=== PATIENT | male | born 1950 | race African-American/Black ===

== ENCOUNTER 2017-08-29 06:08 | Inpatient (IN) | payer MEDICARE, OTHER ==
[~2017-08-29] VITALS: Ht 182.9 cm; Wt 81.2 kg
[~2017-08-29 06:08] MED LIST: ADV250 IH; ASPI-1182 PO; ATOR20TA86 PO; CARV6 PO; FURO40 PO; GABA-531 PO; IPRA4AER IH; PANT40TA25 PO; PRED10 PO
[2017-08-29 06:33] LABS: GLUCOSE,POINT OF CARE 72 MG/DL (70-110)
[2017-08-29 07:06] LABS: BASOPHILS % (AUTO) 0.7 % (0.0-2.0); EOSINOPHILS % (AUTO) 0.6 % (1.0-6.0); HEMATOCRIT 40.5 % (41-53); HEMOGLOBIN 13.1 g/dL (13.5-17.5); LYMPHOCYTES # (AUTO) 1.7 K/uL (1.0-4.8); LYMPHOCYTES % (AUTO) 19.7 % (22.0-44.0); MEAN CORPUSCULAR HEMOGLOBIN 24.6 pg (26.0-34.0); MEAN CORPUSCULAR HGB CONC 32.3 G/dL (31.0-37.0); MEAN CORPUSCULAR VOLUME 76 fL (80-100); MONOCYTES # (AUTO) 0.7 K/uL (0.1-1.0); MONOCYTES % (AUTO) 8.3 % (2.0-9.0); NEUTROPHILS # (AUTO) 6.2 K/uL (1.8-7.7); NEUTROPHILS % (AUTO) 70.7 % (40.0-70.0); PLATELET COUNT (AUTO) 160 K/uL (150-450); RED BLOOD CELL COUNT(AUTO) 5.33 MIL/uL (4.50-5.90); RED CELL DISTRIBUTION WIDTH 21.4 % (11.5-14.5)
[2017-08-29 07:29] LABS: ALBUMIN 3.3 g/dL (3.4-5.0); BILIRUBIN,TOTAL 2.3 mg/dL (0.1-1.0); CALCIUM, TOTAL 9.3 mg/dL (8.8-10.5); CREATININE 2.31 mg/dL (0.60-1.30); TOTAL PROTEIN, SERUM 7.9 g/dL (6.4-8.2)
[2017-08-29] MEDS ORDERED: PB/HYOSCY/ATR/SCOP/LIDO/MAALOX 55 ML BOTTLE PO ONE (07:30)
[2017-08-29 07:39] LABS: POTASSIUM 6.1 mmol/L (3.5-5.1)
[2017-08-29] MEDS ORDERED: SODIUM POLYSTYRENE SULFONATE 15 GM/60 ML SUSPENSION BOTTLE PO ONE (09:30)
[2017-08-29] MEDS ORDERED: FUROSEMIDE 40 MG/4 ML VIAL IVP ONE (09:30)
[2017-08-29] MEDS ORDERED: DEXTROSE 50%-WATER 25 GM/50 ML SYRINGE IVP ONE (09:30)
[2017-08-29] MEDS ORDERED: SODIUM BICARBONATE [ADULT] 8.4% 50 MEQ/50 ML SYRINGE IVP ONE (09:30)
[2017-08-29] MEDS ORDERED: INSULIN REGULAR, HUMAN 100 UNITS/ML IVP ONE (09:30)
[2017-08-29] MEDS ORDERED: ALBUTEROL SULFATE 2.5 MG/0.5 ML NEB SOLUTION NEB ONE (09:30)
[2017-08-29 10:10] LABS: AMPHET/METH SCREEN,URINE NEGATIVE (NEGATIVE); BARBITURATE SCREEN, URINE NEGATIVE (NEGATIVE); BENZODIAZEPINES SCREEN,URINE NEGATIVE (NEGATIVE); CANNABINOID SCREEN,URINE NEGATIVE (NEGATIVE); COCAINE SCREEN,URINE POSITIVE (NEGATIVE); METHADONE SCREEN, URINE NEGATIVE (NEGATIVE); OPIATE SCREEN,URINE NEGATIVE (NEGATIVE)
[2017-08-29 10:11] LABS: PHENCYCLIDINE SCREEN,URINE NEGATIVE (NEGATIVE)
[2017-08-29 10:12] LABS: APPEARANCE,URINE CLOUDY (CLEAR); GLUCOSE, URINE (UA) NEGATIVE (NEGATIVE); KETONES,URINE TRACE mg/dL (NEGATIVE); LEUKOCYTE ESTERASE ,URINE NEGATIVE (NEGATIVE); NITRATE,URINE NEGATIVE (NEGATIVE); OCCULT BLOOD,URINE SMALL (NEGATIVE); PROTEIN,URINE SEE CONFIRM (NEGATIVE)
[2017-08-29 10:13] LABS: BILIRUBIN,URINE PRELIM. POSITIVE (NEGATIVE)
[2017-08-29 10:21] LABS: SULFOSALICYLIC ACID,URINE 2+ (Negative)
[2017-08-29 10:23] LABS: GLUCOSE,POINT OF CARE 134 MG/DL (70-110)
[2017-08-29 10:24] LABS: BACTERIA,URINE None Seen /HPF (None Seen); RENAL EPITHELIAL CELLS,URINE Few /LPF (None Seen); SQUAMOUS EPITHELIAL CELL,UR Few /LPF (None Seen); WBC,URINE 0-2 /HPF (0-5)
[2017-08-29 10:25] LABS: COARSE GRANULAR CASTS,URINE 0-2 /LPF (None Seen)
[2017-08-29] MEDS ORDERED: NITROGLYCERIN 2% (1 GM=INCH) PACKET TP ONE (11:30)
[2017-08-29] MEDS ORDERED: HYDROCODONE/ACETAMINOPHEN 5-325 MG TABLET PO PRN (12:15)
[2017-08-29] MEDS ORDERED: ZOLPIDEM TARTRATE 10 MG TABLET PO PRN (12:15)
[2017-08-29] MEDS ORDERED: MAGNESIUM HYDROXIDE SUSPENSION 30 ML UDCUP PO PRN (12:15)
[2017-08-29] MEDS ORDERED: MORPHINE SULFATE 4 MG/ML SYRINGE IVP PRN (12:15)
[2017-08-29] MEDS ORDERED: IPRATROPIUM BROMIDE 0.5 MG/2.5 ML NEB SOLUTION NEB PRN (12:15)
[2017-08-29] MEDS ORDERED: ACETAMINOPHEN 325 MG TABLET PO PRN (12:15)
[2017-08-29] MEDS ORDERED: ONDANSETRON HCL 4 MG/2 ML VIAL IVP PRN (12:15)
[2017-08-29 12:24] VITALS: BP 145/116
[2017-08-29] MEDS ORDERED: HydrALAZINE HCL 20 MG/ML VIAL IVP PRN (12:30)
[2017-08-29 16:20] VITALS: BP 157/113
[2017-08-29] MEDS: GABAPENTIN 300 MG CAPSULE PO SCH ×2 (16:40→21:05)
[2017-08-29 17:00] LABS: CREATININE,URINE RANDOM 10.9 mg/dL (30.0-125.0)
[2017-08-29] MEDS: NITROGLYCERIN 2% (1 GM=INCH) PACKET TP SCH (17:43)
[2017-08-29 18:44] LABS: CALCIUM, TOTAL 9.2 mg/dL (8.8-10.5); CREATININE 2.37 mg/dL (0.60-1.30); POTASSIUM 4.7 mmol/L (3.5-5.1)
[2017-08-29 19:25] VITALS: BP 148/104
[2017-08-29] MEDS: ATORVASTATIN CALCIUM 20 MG TABLET PO SCH (21:05)
[2017-08-29] MEDS: CARVEDILOL 6.25 MG TABLET PO SCH (21:05)
[2017-08-29] MEDS: FLUTICASONE/SALMETEROL 250 MCG-50 MCG/INH DISKUS INHALER [28] IH SCH (21:05)
[2017-08-29] MEDS: FUROSEMIDE 40 MG TABLET PO SCH (21:05)
[2017-08-29] MEDS: DOCUSATE SODIUM 100 MG CAPSULE PO SCH (21:05)
[2017-08-29 23:39] VITALS: BP 149/107
[2017-08-30] MEDS: NITROGLYCERIN 2% (1 GM=INCH) PACKET TP SCH ×2 (00:06→05:32)
[2017-08-30 03:32] VITALS: BP 142/109
[2017-08-30 06:24] LABS: CHOL/HDL RATIO 3.2 (4.2-7.3)
[2017-08-30 07:09] VITALS: BP 131/103
[2017-08-30] MEDS: PANTOPRAZOLE SODIUM 40 MG/VIAL IVP SCH (09:00)
[2017-08-30] MEDS: GABAPENTIN 300 MG CAPSULE PO SCH ×3 (09:51→20:03)
[2017-08-30] MEDS: PredniSONE 10 MG TABLET PO SCH (09:51)
[2017-08-30] MEDS: PANTOPRAZOLE SODIUM 40 MG DR TABLET PO SCH (09:51)
[2017-08-30] MEDS: FUROSEMIDE 40 MG TABLET PO SCH ×2 (09:51→20:03)
[2017-08-30] MEDS: CARVEDILOL 6.25 MG TABLET PO SCH ×2 (09:51→20:03)
[2017-08-30] MEDS: ASPIRIN 81 MG CHEWABLE TABLET PO SCH (09:51)
[2017-08-30] MEDS: DOCUSATE SODIUM 100 MG CAPSULE PO SCH ×2 (09:51→20:04)
[2017-08-30] MEDS: FLUTICASONE/SALMETEROL 250 MCG-50 MCG/INH DISKUS INHALER [28] IH SCH ×2 (10:35→20:04)
[2017-08-30] MEDS: AmLODIPine BESYLATE 5 MG TABLET PO SCH (10:35)
[2017-08-30 11:17] VITALS: BP 121/91
[2017-08-30 12:49] LABS: BASOPHILS % (AUTO) 0.9 % (0.0-2.0); HEMATOCRIT 37.5 % (41-53); HEMOGLOBIN 12.1 g/dL (13.5-17.5); LYMPHOCYTES # (AUTO) 1.9 K/uL (1.0-4.8); LYMPHOCYTES % (AUTO) 23.5 % (22.0-44.0); MEAN CORPUSCULAR HEMOGLOBIN 24.4 pg (26.0-34.0); MEAN CORPUSCULAR HGB CONC 32.4 G/dL (31.0-37.0); MEAN CORPUSCULAR VOLUME 75 fL (80-100); MONOCYTES # (AUTO) 0.8 K/uL (0.1-1.0); MONOCYTES % (AUTO) 9.8 % (2.0-9.0); NEUTROPHILS # (AUTO) 5.1 K/uL (1.8-7.7); NEUTROPHILS % (AUTO) 64.8 % (40.0-70.0); RED BLOOD CELL COUNT(AUTO) 4.97 MIL/uL (4.50-5.90); RED CELL DISTRIBUTION WIDTH 21.4 % (11.5-14.5)
[2017-08-30 13:01] LABS: ALBUMIN 2.9 g/dL (3.4-5.0); BILIRUBIN,TOTAL 1.5 mg/dL (0.1-1.0); CALCIUM, TOTAL 8.8 mg/dL (8.8-10.5); CREATININE 2.3 mg/dL (0.60-1.30); POTASSIUM 4.8 mmol/L (3.5-5.1); TOTAL PROTEIN, SERUM 6.7 g/dL (6.4-8.2)
[2017-08-30 13:32] LABS: PLATELET COUNT (AUTO) 120 K/uL (150-450)
[2017-08-30 15:39] VITALS: BP 124/94
[2017-08-30 19:14] LABS: CALCIUM, TOTAL 8.6 mg/dL (8.8-10.5); CREATININE 2.73 mg/dL (0.60-1.30); MAGNESIUM 1.9 mg/dL (1.80-2.40); PHOSPHORUS 3.1 mg/dL (2.5-4.9); POTASSIUM 4.8 mmol/L (3.5-5.1)
[2017-08-30 19:26] VITALS: BP 136/95
[2017-08-30] MEDS: ATORVASTATIN CALCIUM 20 MG TABLET PO SCH (20:03)
[2017-08-30 23:07] VITALS: BP 140/90
[2017-08-31 04:53] VITALS: BP 132/87
[2017-08-31 07:56] VITALS: BP 149/98
[2017-08-31] MEDS: PANTOPRAZOLE SODIUM 40 MG/VIAL IVP SCH (09:00)
[2017-08-31] MEDS: ASPIRIN 81 MG CHEWABLE TABLET PO SCH (09:42)
[2017-08-31] MEDS: FLUTICASONE/SALMETEROL 250 MCG-50 MCG/INH DISKUS INHALER [28] IH SCH ×2 (09:42→20:50)
[2017-08-31] MEDS: PredniSONE 10 MG TABLET PO SCH (09:42)
[2017-08-31] MEDS: DOCUSATE SODIUM 100 MG CAPSULE PO SCH ×2 (09:42→20:50)
[2017-08-31] MEDS: PANTOPRAZOLE SODIUM 40 MG DR TABLET PO SCH (09:42)
[2017-08-31] MEDS: CARVEDILOL 6.25 MG TABLET PO SCH ×2 (09:42→20:50)
[2017-08-31] MEDS: GABAPENTIN 300 MG CAPSULE PO SCH ×3 (09:42→20:50)
[2017-08-31] MEDS: AmLODIPine BESYLATE 5 MG TABLET PO SCH (10:55)
[2017-08-31] MEDS: FUROSEMIDE 40 MG TABLET PO SCH (10:55)
[2017-08-31 11:16] VITALS: BP 117/83
[2017-08-31] MEDS ORDERED: BARIUM SULFATE 0.1% SUSPENSION 450 ML BOTTLE ONE (13:06)
[2017-08-31 15:25] VITALS: BP 99/74
[2017-08-31 19:34] VITALS: BP 110/72
[2017-08-31] MEDS: ATORVASTATIN CALCIUM 20 MG TABLET PO SCH (20:50)
[2017-08-31 23:30] VITALS: BP 132/70
[2017-09-01 03:29] VITALS: BP 112/72
[2017-09-01 07:34] VITALS: BP 149/78
[2017-09-01] MEDS: PANTOPRAZOLE SODIUM 40 MG/VIAL IVP SCH (09:00)
[2017-09-01] MEDS ORDERED: FUROSEMIDE 40 MG TABLET PO SCH (09:00)
[2017-09-01] MEDS: DOCUSATE SODIUM 100 MG CAPSULE PO SCH ×2 (09:10→20:22)
[2017-09-01] MEDS: AmLODIPine BESYLATE 5 MG TABLET PO SCH (09:10)
[2017-09-01] MEDS: CARVEDILOL 6.25 MG TABLET PO SCH ×2 (09:10→20:22)
[2017-09-01] MEDS: GABAPENTIN 300 MG CAPSULE PO SCH ×3 (09:10→20:22)
[2017-09-01] MEDS: PredniSONE 10 MG TABLET PO SCH (09:10)
[2017-09-01] MEDS: PANTOPRAZOLE SODIUM 40 MG DR TABLET PO SCH (09:11)
[2017-09-01] MEDS: FLUTICASONE/SALMETEROL 250 MCG-50 MCG/INH DISKUS INHALER [28] IH SCH ×2 (09:11→20:21)
[2017-09-01] MEDS: FUROSEMIDE 40 MG TABLET PO SCH (09:11)
[2017-09-01] MEDS: ASPIRIN 81 MG CHEWABLE TABLET PO SCH (09:11)
[2017-09-01 11:47] VITALS: BP 136/87
[2017-09-01 11:55] LABS: CALCIUM, TOTAL 8.2 mg/dL (8.8-10.5); CREATININE 2.07 mg/dL (0.60-1.30); POTASSIUM 3.7 mmol/L (3.5-5.1)
[2017-09-01 11:59] LABS: MAGNESIUM 1.9 mg/dL (1.80-2.40)
[2017-09-01] MEDS ORDERED: POTASSIUM PHOS,M-BASIC-D-BASIC 30 MEQ in DEXTROSE 5%-WATER 150 ML IV ONE (13:30)
[2017-09-01] MEDS ORDERED: SODIUM CHLORIDE 0.9% 100 ML ONE (15:19)
[2017-09-01 16:00] VITALS: BP 137/70
[2017-09-01 20:04] VITALS: BP 136/93
[2017-09-01] MEDS: ATORVASTATIN CALCIUM 20 MG TABLET PO SCH (20:22)
[2017-09-02 00:43] VITALS: BP 140/95
[2017-09-02 04:30] VITALS: BP 129/95
[2017-09-02 06:28] LABS: BASOPHILS % (AUTO) 0.5 % (0.0-2.0); HEMATOCRIT 37.6 % (41-53); HEMOGLOBIN 12.3 g/dL (13.5-17.5); LYMPHOCYTES % (AUTO) 10.4 % (22.0-44.0); MEAN CORPUSCULAR HEMOGLOBIN 24.5 pg (26.0-34.0); MEAN CORPUSCULAR HGB CONC 32.8 G/dL (31.0-37.0); MEAN CORPUSCULAR VOLUME 75 fL (80-100); NEUTROPHILS # (AUTO) 7.7 K/uL (1.8-7.7); NEUTROPHILS % (AUTO) 78.1 % (40.0-70.0); PLATELET COUNT (AUTO) 160 K/uL (150-450); RED BLOOD CELL COUNT(AUTO) 5.03 MIL/uL (4.50-5.90); RED CELL DISTRIBUTION WIDTH 21.2 % (11.5-14.5)
[2017-09-02 07:11] LABS: CALCIUM, TOTAL 8.1 mg/dL (8.8-10.5); CREATININE 1.99 mg/dL (0.60-1.30); MAGNESIUM 1.9 mg/dL (1.80-2.40); PHOSPHORUS 1.9 mg/dL (2.5-4.9); POTASSIUM 4.2 mmol/L (3.5-5.1)
[2017-09-02 07:31] VITALS: BP 155/97
[2017-09-02 08:36] LABS: ERYTHROCYTE SEDIMENTATION RATE 4 MM/HR (0-15)
[2017-09-02] MEDS: PANTOPRAZOLE SODIUM 40 MG/VIAL IVP SCH (09:00)
[2017-09-02] MEDS: FUROSEMIDE 40 MG TABLET PO SCH (09:02)
[2017-09-02] MEDS: PANTOPRAZOLE SODIUM 40 MG DR TABLET PO SCH (09:02)
[2017-09-02] MEDS: CARVEDILOL 6.25 MG TABLET PO SCH ×2 (09:03→20:17)
[2017-09-02] MEDS: ASPIRIN 81 MG CHEWABLE TABLET PO SCH (09:03)
[2017-09-02] MEDS: PredniSONE 10 MG TABLET PO SCH (09:03)
[2017-09-02] MEDS: GABAPENTIN 300 MG CAPSULE PO SCH ×3 (09:03→20:17)
[2017-09-02] MEDS: AmLODIPine BESYLATE 5 MG TABLET PO SCH (09:03)
[2017-09-02] MEDS: FLUTICASONE/SALMETEROL 250 MCG-50 MCG/INH DISKUS INHALER [28] IH SCH ×2 (09:04→20:17)
[2017-09-02] MEDS: DOCUSATE SODIUM 100 MG CAPSULE PO SCH ×2 (09:04→20:17)
[2017-09-02] MEDS ORDERED: SODIUM PHOS,M-BASIC-D-BASIC 30 MEQ in DEXTROSE 5%-WATER 150 ML IV ONE (09:15)
[2017-09-02 11:39] VITALS: BP 136/95
[2017-09-02 16:38] VITALS: BP 126/96
[2017-09-02 19:25] VITALS: BP 130/91
[2017-09-02] MEDS: ATORVASTATIN CALCIUM 20 MG TABLET PO SCH (20:17)
[2017-09-03] VITALS (15 sets, daily range): BP systolic 97–144; BP diastolic 74–105
[2017-09-03 07:40] LABS: BASOPHILS % (AUTO) 0.6 % (0.0-2.0); EOSINOPHILS % (AUTO) 1.3 % (1.0-6.0); HEMATOCRIT 37.2 % (41-53); HEMOGLOBIN 12.3 g/dL (13.5-17.5); LYMPHOCYTES # (AUTO) 1.2 K/uL (1.0-4.8); LYMPHOCYTES % (AUTO) 13.8 % (22.0-44.0); MEAN CORPUSCULAR HEMOGLOBIN 24.6 pg (26.0-34.0); MEAN CORPUSCULAR VOLUME 75 fL (80-100); MONOCYTES # (AUTO) 0.9 K/uL (0.1-1.0); MONOCYTES % (AUTO) 10.2 % (2.0-9.0); NEUTROPHILS # (AUTO) 6.4 K/uL (1.8-7.7); NEUTROPHILS % (AUTO) 74.1 % (40.0-70.0); PLATELET COUNT (AUTO) 160 K/uL (150-450); RED BLOOD CELL COUNT(AUTO) 4.98 MIL/uL (4.50-5.90); RED CELL DISTRIBUTION WIDTH 21.2 % (11.5-14.5)
[2017-09-03 07:52] LABS: INR 1.1 (0.9-1.1); PROTHROMBIN TIME 11.4 SEC (9.4-11.6)
[2017-09-03 08:05] LABS: CALCIUM, TOTAL 8.7 mg/dL (8.8-10.5); CREATININE 1.8 mg/dL (0.60-1.30); MAGNESIUM 2.1 mg/dL (1.80-2.40); PHOSPHORUS 2.9 mg/dL (2.5-4.9); POTASSIUM 4.1 mmol/L (3.5-5.1)
[2017-09-03] MEDS: PANTOPRAZOLE SODIUM 40 MG DR TABLET PO SCH (09:04)
[2017-09-03] MEDS: FLUTICASONE/SALMETEROL 250 MCG-50 MCG/INH DISKUS INHALER [28] IH SCH ×2 (09:04→20:23)
[2017-09-03] MEDS: GABAPENTIN 300 MG CAPSULE PO SCH ×3 (09:04→20:23)
[2017-09-03] MEDS: CARVEDILOL 6.25 MG TABLET PO SCH ×2 (09:04→20:23)
[2017-09-03] MEDS: PredniSONE 10 MG TABLET PO SCH (09:04)
[2017-09-03] MEDS: AmLODIPine BESYLATE 5 MG TABLET PO SCH (09:05)
[2017-09-03] MEDS: DOCUSATE SODIUM 100 MG CAPSULE PO SCH ×2 (09:05→20:23)
[2017-09-03] MEDS: ASPIRIN 81 MG CHEWABLE TABLET PO SCH (09:05)
[2017-09-03] MEDS: FUROSEMIDE 40 MG TABLET PO SCH (09:05)
[2017-09-03] MEDS ORDERED: GLYCOPYRROLATE 0.2 MG/ML VIAL IM ONE (12:00)
[2017-09-03] MEDS ORDERED: MIDAZOLAM HCL 2 MG/2 ML VIAL IVP ONE (12:00)
[2017-09-03] MEDS ORDERED: ALBUTEROL SULFATE HFA 90 MCG/PUFF 8 GM INHALER IH ONE (12:00)
[2017-09-03] MEDS ORDERED: LIDOCAINE HCL/PF 2% 5 ML SYRINGE IVP ONE (12:00)
[2017-09-03] MEDS ORDERED: DEXAMETHASONE SOD PHOS 4 MG/ML VIAL IVP ONE (12:00)
[2017-09-03] MEDS ORDERED: PROPOFOL 1% 20 ML VIAL IVP ONE (12:00)
[2017-09-03] MEDS ORDERED: METOCLOPRAMIDE HCL 5 MG/ML 2 ML VIAL IVP ONE (12:00)
[2017-09-03] MEDS ORDERED: FentaNYL CITRATE-PF 100 MCG/2 ML VIAL IVP ONE (12:00)
[2017-09-03] MEDS ORDERED: SODIUM BICARBONATE 50 MEQ/50 ML VIAL ONE (12:31)
[2017-09-03] MEDS ORDERED: IOHEXOL 300 MG/ML 50 ML VIAL ONE ×2 (12:31→13:47)
[2017-09-03] MEDS ORDERED: LIDOCAINE HCL/PF 1% 30 ML VIAL ONE ×2 (12:31→13:52)
[2017-09-03] MEDS ORDERED: VASOPRESSIN 20 UNITS/ML VIAL ONE (12:55)
[2017-09-03] MEDS ORDERED: BUPIVACAINE LIPOSOME/PF 1.3%-13.3MG/ML SUSPENSION 10 ML VIAL INJ ONE (13:00)
[2017-09-03] MEDS ORDERED: LIDOCAINE 1% 30 ML/SOD BICARB 8.4% 4 ML SQ ONE (13:46)
[2017-09-03] MEDS ORDERED: CeFAZolin 1 GM/DEXTROSE 50 ML IV SCH (16:00)
[2017-09-03] MEDS ORDERED: CeFAZolin 1 GM/DEXTROSE 10 ML IV SCH (16:00)
[2017-09-03] MEDS ORDERED: POTASSIUM PHOS/SODIUM PHOS MIXTURE 1 POWDER PACKET PO ONE (19:00)
[2017-09-03] MEDS: ATORVASTATIN CALCIUM 20 MG TABLET PO SCH (20:23)
[2017-09-03] MEDS ORDERED: SODIUM CHLORIDE 0.9% 100 ML ONE (22:56)
[2017-09-03] MEDS: CeFAZolin 1 GM/DEXTROSE 50 ML IV SCH (22:57)
[2017-09-04] MEDS: CeFAZolin 1 GM/DEXTROSE 50 ML IV SCH ×2 (03:54→11:33)
[2017-09-04 05:05] VITALS: BP 122/79
[2017-09-04 07:19] VITALS: BP 130/86
[2017-09-04 07:45] LABS: CALCIUM, TOTAL 8.2 mg/dL (8.8-10.5); CREATININE 1.96 mg/dL (0.60-1.30); MAGNESIUM 2.3 mg/dL (1.80-2.40); PHOSPHORUS 3.1 mg/dL (2.5-4.9); POTASSIUM 5.5 mmol/L (3.5-5.1)
[2017-09-04] MEDS: DOCUSATE SODIUM 100 MG CAPSULE PO SCH (08:28)
[2017-09-04] MEDS: GABAPENTIN 300 MG CAPSULE PO SCH ×2 (08:28→18:44)
[2017-09-04] MEDS: PANTOPRAZOLE SODIUM 40 MG DR TABLET PO SCH (08:28)
[2017-09-04] MEDS: CARVEDILOL 6.25 MG TABLET PO SCH (08:28)
[2017-09-04] MEDS: FUROSEMIDE 40 MG TABLET PO SCH (08:29)
[2017-09-04] MEDS: ASPIRIN 81 MG CHEWABLE TABLET PO SCH (08:29)
[2017-09-04] MEDS: PredniSONE 10 MG TABLET PO SCH (08:29)
[2017-09-04] MEDS: AmLODIPine BESYLATE 5 MG TABLET PO SCH (08:30)
[2017-09-04] MEDS ORDERED: SODIUM POLYSTYRENE SULFONATE 15 GM/60 ML SUSPENSION BOTTLE PO ONE (09:45)
[2017-09-04] MEDS: FLUTICASONE/SALMETEROL 250 MCG-50 MCG/INH DISKUS INHALER [28] IH SCH (09:51)
[2017-09-04] MEDS ORDERED: CeFAZolin 1 GM/DEXTROSE 10 ML IV SCH (10:00)
[2017-09-04 11:01] VITALS: BP 139/95
[2017-09-04] MEDS ORDERED: AMLO-511 PO (12:49)
[2017-09-04 15:41] VITALS: BP 138/92
== END 2017-09-04 20:15 | disposition home or self-care (01) | DRG 226 ==
LOC: EMS 06:09 → 5N 10:52
PROVIDERS: ADMIT Hospitalist; ATTEND Hospitalist
PROC: 0JH608Z Insertion of Defibrillator Generator into Chest Subcutaneous Tissue and Fascia, Open Approach (ICD-10-PCS; principal; 2017-09-03)
PROC: 02HK3KZ Insertion of Defibrillator Lead into Right Ventricle, Percutaneous Approach (ICD-10-PCS; 2017-09-03)
PROC: 4B02XTZ Measurement of Cardiac Defibrillator, External Approach (ICD-10-PCS; 2017-09-04)
DX: I13.0 Hypertensive heart and chronic kidney disease with heart failure and stage 1 through stage 4 chronic kidney disease, or unspecified chronic kidney disease (principal); I50.23 Acute on chronic systolic (congestive) heart failure; I47.2 Ventricular tachycardia; N17.9 Acute kidney failure, unspecified; E11.22 Type 2 diabetes mellitus with diabetic chronic kidney disease; K52.9 Noninfective gastroenteritis and colitis, unspecified; K21.9 Gastro-esophageal reflux disease without esophagitis; J44.9 Chronic obstructive pulmonary disease, unspecified; N18.9 Chronic kidney disease, unspecified; E78.00 Pure hypercholesterolemia, unspecified; B19.20 Unspecified viral hepatitis C without hepatic coma; E78.5 Hyperlipidemia, unspecified; E83.39 Other disorders of phosphorus metabolism; E87.5 Hyperkalemia; I25.10 Atherosclerotic heart disease of native coronary artery without angina pectoris; I25.5 Ischemic cardiomyopathy; R16.0 Hepatomegaly, not elsewhere classified; K40.90 Unilateral inguinal hernia, without obstruction or gangrene, not specified as recurrent; K42.9 Umbilical hernia without obstruction or gangrene; K57.90 Diverticulosis of intestine, part unspecified, without perforation or abscess without bleeding; N20.0 Calculus of kidney; F10.10 Alcohol abuse, uncomplicated; F14.10 Cocaine abuse, uncomplicated; F15.10 Other stimulant abuse, uncomplicated; F17.210 Nicotine dependence, cigarettes, uncomplicated; Z79.82 Long term (current) use of aspirin; Z79.899 Other long term (current) drug therapy; Z95.1 Presence of aortocoronary bypass graft; Z95.2 Presence of prosthetic heart valve
CPT/HCPCS: 33249; 71046; 74022; 74176; 76000; 76700; 82570; 83735; 84100; 84156; 84300; 84540; 85651; 93005; 93306; 94640; 96374; 96375; 99291; C9113; J0360; J0690; J1100; J1815; J1940; J2250; J2704; J2765; J3010; J3490; J3535; J7050; J7060; Q9967

== ENCOUNTER → 2017-09-11 | Outpatient (CLI) | payer MEDICARE, OTHER ==
[~2017-09-11] VITALS: Ht 180.3 cm; Wt 82.0 kg
[~2017-09-11] MED LIST changes: +AMLO-511 PO
[2017-09-11 14:23] VITALS: BP 155/89
== END | disposition home or self-care (01) ==
LOC: SRCNTR 10:34
PROVIDERS: ATTEND Internal Medicine Clinical Cardiac Electrophysiology
DX: Z45.02 Encounter for adjustment and management of automatic implantable cardiac defibrillator (principal); I11.0 Hypertensive heart disease with heart failure; I50.9 Heart failure, unspecified; R10.9 Unspecified abdominal pain; E11.9 Type 2 diabetes mellitus without complications
CPT/HCPCS: G0463

== ENCOUNTER 2017-09-13 05:21 | Inpatient (IN) | payer MEDICARE, OTHER ==
[~2017-09-13] VITALS: Ht 185.4 cm; Wt 79.4 kg
[2017-09-13] VITALS (8 sets, daily range): BP systolic 129–178; BP diastolic 69–103
[2017-09-13 06:08] LABS: BASOPHILS % (AUTO) 0.5 % (0.0-2.0); EOSINOPHILS % (AUTO) 1.1 % (1.0-6.0); HEMATOCRIT 40.2 % (41-53); LYMPHOCYTES # (AUTO) 1.1 K/uL (1.0-4.8); LYMPHOCYTES % (AUTO) 13.1 % (22.0-44.0); MEAN CORPUSCULAR HEMOGLOBIN 24.5 pg (26.0-34.0); MEAN CORPUSCULAR HGB CONC 32.4 G/dL (31.0-37.0); MEAN CORPUSCULAR VOLUME 76 fL (80-100); MONOCYTES # (AUTO) 0.6 K/uL (0.1-1.0); MONOCYTES % (AUTO) 7.1 % (2.0-9.0); NEUTROPHILS # (AUTO) 6.6 K/uL (1.8-7.7); NEUTROPHILS % (AUTO) 78.2 % (40.0-70.0); PLATELET COUNT (AUTO) 182 K/uL (150-450); RED BLOOD CELL COUNT(AUTO) 5.32 MIL/uL (4.50-5.90); RED CELL DISTRIBUTION WIDTH 21.4 % (11.5-14.5)
[2017-09-13 06:11] LABS: ANION GAP 7 mmol/L (8-16); CARBON DIOXIDE 24 mmol/L (22-29); CHLORIDE 106 mmol/L (98-107); CREATININE 1.64 mg/dL (0.60-1.30); GLOMERULAR FILTR. RATE CALC 51 mL/min (>60); GLUCOSE,RANDOM 102 mg/dL (70-110); POTASSIUM 3.9 mmol/L (3.5-5.1); SODIUM SERUM 137 mmol/L (136-145); UREA NITROGEN, BLOOD 26 mg/dL (7-18)
[2017-09-13 06:13] LABS: INR 1.1 (0.9-1.1); PROTHROMBIN TIME 11.1 SEC (9.4-11.6)
[2017-09-13] MEDS ORDERED: ASPIRIN 81 MG CHEWABLE TABLET PO ONE (06:15)
[2017-09-13] MEDS ORDERED: NITROGLYCERIN 2% (1 GM=INCH) PACKET TP ONE (06:15)
[2017-09-13 06:17] LABS: ALANINE AMINOTRANSFERASE 29 U/L (12-78); ALBUMIN 2.9 g/dL (3.4-5.0); ALKALINE PHOSPHATASE 215 U/L (46-116); ASPARTATE AMINOTRANSFERASE 32 U/L (15-37); CREATINE KINASE, TOTAL 74 U/L (39-308); TOTAL PROTEIN, SERUM 7.6 g/dL (6.4-8.2)
[2017-09-13 06:27] LABS: B-TYPE NATRIURETIC PEPTIDE 3120 pg/mL (0-100)
[2017-09-13] MEDS ORDERED: FUROSEMIDE 40 MG/4 ML VIAL IVP ONE (06:45)
[2017-09-13 07:24] LABS: APPEARANCE,URINE CLEAR (CLEAR); BILIRUBIN,URINE NEGATIVE (NEGATIVE); GLUCOSE, URINE (UA) NEGATIVE (NEGATIVE); KETONES,URINE NEGATIVE (NEGATIVE); LEUKOCYTE ESTERASE ,URINE NEGATIVE (NEGATIVE); NITRATE,URINE NEGATIVE (NEGATIVE); OCCULT BLOOD,URINE TRACE (NEGATIVE); PH,URINE 5.5 (5.0-8.0); PROTEIN,URINE SEE CONFIRM (NEGATIVE)
[2017-09-13 07:34] LABS: SULFOSALICYLIC ACID,URINE 3+ (Negative)
[2017-09-13 07:38] LABS: BACTERIA,URINE None Seen /HPF (None Seen); RBC,URINE None Seen /HPF (0-2); SQUAMOUS EPITHELIAL CELL,UR Rare /LPF (None Seen); WBC,URINE 0-2 /HPF (0-5)
[2017-09-13] MEDS ORDERED: ONDANSETRON HCL 4 MG/2 ML VIAL IVP PRN ×2 (08:30→12:15)
[2017-09-13] MEDS ORDERED: 0.9% SODIUM CHLORIDE 10 ML SYRINGE IVP PRN (08:30)
[2017-09-13] MEDS ORDERED: ACETAMINOPHEN 325 MG TABLET PO PRN ×2 (08:30→12:15)
[2017-09-13] MEDS ORDERED: MAGNESIUM HYDROXIDE SUSPENSION 30 ML UDCUP PO PRN (12:15)
[2017-09-13] MEDS ORDERED: HYDROCODONE/ACETAMINOPHEN 5-325 MG TABLET PO PRN (12:15)
[2017-09-13] MEDS ORDERED: HydrALAZINE HCL 20 MG/ML VIAL IVP PRN (12:15)
[2017-09-13] MEDS ORDERED: MORPHINE SULFATE 4 MG/ML SYRINGE IVP PRN (12:15)
[2017-09-13] MEDS ORDERED: BISACODYL 10 MG RECTAL RECTAL SUPPOSITORY PR PRN (12:15)
[2017-09-13] MEDS ORDERED: ALBUTEROL SULFATE/IPRATROPIUM 100-20 MCG/SPRAY 4 GM INHALER IH PRN (12:15)
[2017-09-13] MEDS ORDERED: ZOLPIDEM TARTRATE 5 MG TABLET PO PRN (12:15)
[2017-09-13] MEDS ORDERED: CARVEDILOL 6.25 MG TABLET PO SCH ×2 (13:36→21:00)
[2017-09-13] MEDS ORDERED: ISOSORBIDE DINITRATE 40 MG PO SCH (14:00)
[2017-09-13] MEDS: GABAPENTIN 300 MG CAPSULE PO SCH ×2 (15:07→20:40)
[2017-09-13] MEDS: HydrALAZINE HCL 25 MG TABLET PO SCH ×2 (15:07→21:00)
[2017-09-13] MEDS: HEPARIN SODIUM,PORCINE 5,000 UNITS/ML VIAL SQ SCH ×2 (15:07→23:32)
[2017-09-13] MEDS: SPIRONOLACTONE 25 MG TABLET PO SCH (15:07)
[2017-09-13] MEDS: ISOSORBIDE DINITRATE 20 MG TABLET PO SCH ×2 (16:40→22:52)
[2017-09-13] MEDS: CARVEDILOL 12.5 MG TABLET PO SCH (20:40)
[2017-09-13] MEDS: DOCUSATE SODIUM 100 MG CAPSULE PO SCH (20:40)
[2017-09-13] MEDS: FUROSEMIDE 20 MG/2 ML VIAL IVP SCH (20:40)
[2017-09-13] MEDS: ATORVASTATIN CALCIUM 20 MG TABLET PO SCH (20:40)
[2017-09-13] MEDS ORDERED: FUROSEMIDE 20 MG/2 ML VIAL IVP SCH (21:00)
[2017-09-14 04:21] VITALS: BP 124/85
[2017-09-14 06:38] LABS: BASOPHILS % (AUTO) 0.7 % (0.0-2.0); EOSINOPHILS % (AUTO) 2.3 % (1.0-6.0); HEMATOCRIT 32.8 % (41-53); HEMOGLOBIN 10.7 g/dL (13.5-17.5); LYMPHOCYTES # (AUTO) 1.3 K/uL (1.0-4.8); LYMPHOCYTES % (AUTO) 18.3 % (22.0-44.0); MEAN CORPUSCULAR HEMOGLOBIN 24.4 pg (26.0-34.0); MEAN CORPUSCULAR HGB CONC 32.7 G/dL (31.0-37.0); MEAN CORPUSCULAR VOLUME 75 fL (80-100); MONOCYTES # (AUTO) 0.5 K/uL (0.1-1.0); MONOCYTES % (AUTO) 6.8 % (2.0-9.0); NEUTROPHILS # (AUTO) 5.3 K/uL (1.8-7.7); NEUTROPHILS % (AUTO) 71.9 % (40.0-70.0); PLATELET COUNT (AUTO) 156 K/uL (150-450); RED CELL DISTRIBUTION WIDTH 21.1 % (11.5-14.5)
[2017-09-14 06:58] LABS: ALBUMIN 2.3 g/dL (3.4-5.0); BILIRUBIN,TOTAL 0.8 mg/dL (0.1-1.0); CALCIUM, TOTAL 8.3 mg/dL (8.8-10.5); CREATININE 1.7 mg/dL (0.60-1.30); POTASSIUM 3.6 mmol/L (3.5-5.1)
[2017-09-14 07:25] VITALS: BP 153/92
[2017-09-14] MEDS: FUROSEMIDE 20 MG/2 ML VIAL IVP SCH ×2 (08:52→20:46)
[2017-09-14] MEDS: CARVEDILOL 12.5 MG TABLET PO SCH ×2 (08:54→21:29)
[2017-09-14] MEDS: GABAPENTIN 300 MG CAPSULE PO SCH ×3 (08:54→20:46)
[2017-09-14] MEDS: PANTOPRAZOLE SODIUM 40 MG DR TABLET PO SCH (08:54)
[2017-09-14] MEDS: HEPARIN SODIUM,PORCINE 5,000 UNITS/ML VIAL SQ SCH ×3 (08:54→23:15)
[2017-09-14] MEDS: DOCUSATE SODIUM 100 MG CAPSULE PO SCH ×2 (08:55→20:46)
[2017-09-14] MEDS: ASPIRIN 81 MG EC TABLET PO SCH (08:55)
[2017-09-14] MEDS: HydrALAZINE HCL 25 MG TABLET PO SCH ×2 (09:00→21:29)
[2017-09-14] MEDS ORDERED: AmLODIPine BESYLATE 5 MG TABLET PO SCH (09:00)
[2017-09-14] MEDS ORDERED: LISINOPRIL 5 MG TABLET PO SCH (09:00)
[2017-09-14] MEDS: ISOSORBIDE DINITRATE 20 MG TABLET PO SCH ×2 (09:58→23:15)
[2017-09-14] MEDS: SPIRONOLACTONE 25 MG TABLET PO SCH (09:58)
[2017-09-14 11:32] VITALS: BP 102/67
[2017-09-14 15:25] VITALS: BP 122/70
[2017-09-14 19:59] VITALS: BP 129/70
[2017-09-14] MEDS: ATORVASTATIN CALCIUM 20 MG TABLET PO SCH (20:46)
[2017-09-14 23:09] VITALS: BP 117/71
[2017-09-15 04:54] VITALS: BP 99/74
[2017-09-15 06:58] LABS: BASOPHILS % (AUTO) 1.1 % (0.0-2.0); EOSINOPHILS % (AUTO) 2.9 % (1.0-6.0); HEMATOCRIT 33.1 % (41-53); HEMOGLOBIN 10.7 g/dL (13.5-17.5); LYMPHOCYTES # (AUTO) 1.1 K/uL (1.0-4.8); LYMPHOCYTES % (AUTO) 15.3 % (22.0-44.0); MEAN CORPUSCULAR HEMOGLOBIN 24.3 pg (26.0-34.0); MEAN CORPUSCULAR HGB CONC 32.4 G/dL (31.0-37.0); MEAN CORPUSCULAR VOLUME 75 fL (80-100); MONOCYTES # (AUTO) 0.6 K/uL (0.1-1.0); MONOCYTES % (AUTO) 7.8 % (2.0-9.0); NEUTROPHILS # (AUTO) 5.4 K/uL (1.8-7.7); NEUTROPHILS % (AUTO) 72.9 % (40.0-70.0); PLATELET COUNT (AUTO) 140 K/uL (150-450); RED BLOOD CELL COUNT(AUTO) 4.43 MIL/uL (4.50-5.90); RED CELL DISTRIBUTION WIDTH 21.2 % (11.5-14.5)
[2017-09-15 07:07] LABS: ALBUMIN 2.3 g/dL (3.4-5.0); BILIRUBIN,TOTAL 0.7 mg/dL (0.1-1.0); CALCIUM, TOTAL 8.2 mg/dL (8.8-10.5); CREATININE 2.08 mg/dL (0.60-1.30); MAGNESIUM 1.9 mg/dL (1.80-2.40); POTASSIUM 3.7 mmol/L (3.5-5.1); TOTAL PROTEIN, SERUM 6.1 g/dL (6.4-8.2)
[2017-09-15 07:52] VITALS: BP 110/76
[2017-09-15] MEDS: ASPIRIN 81 MG EC TABLET PO SCH (08:16)
[2017-09-15] MEDS: GABAPENTIN 300 MG CAPSULE PO SCH ×3 (08:16→20:14)
[2017-09-15] MEDS: DOCUSATE SODIUM 100 MG CAPSULE PO SCH ×2 (08:16→20:14)
[2017-09-15] MEDS: ISOSORBIDE DINITRATE 20 MG TABLET PO SCH ×2 (08:16→23:48)
[2017-09-15] MEDS: PANTOPRAZOLE SODIUM 40 MG DR TABLET PO SCH (08:16)
[2017-09-15] MEDS: CARVEDILOL 12.5 MG TABLET PO SCH ×2 (08:16→21:31)
[2017-09-15] MEDS: FUROSEMIDE 20 MG/2 ML VIAL IVP SCH ×2 (08:17→20:14)
[2017-09-15] MEDS: HEPARIN SODIUM,PORCINE 5,000 UNITS/ML VIAL SQ SCH ×3 (08:17→23:49)
[2017-09-15] MEDS ORDERED: LISINOPRIL 10 MG TABLET PO SCH (09:00)
[2017-09-15] MEDS: HydrALAZINE HCL 25 MG TABLET PO SCH ×2 (09:00→21:31)
[2017-09-15 11:42] VITALS: BP 93/63
[2017-09-15 15:22] VITALS: BP 128/56
[2017-09-15] MEDS ORDERED: CEPHALEXIN MONOHYDRATE 250 MG CAPSULE PO SCH (16:00)
[2017-09-15 19:40] VITALS: BP 108/68
[2017-09-15] MEDS: ATORVASTATIN CALCIUM 20 MG TABLET PO SCH (20:14)
[2017-09-15] MEDS: CEPHALEXIN MONOHYDRATE 250 MG CAPSULE PO SCH (20:14)
[2017-09-15 23:55] VITALS: BP 100/57
[2017-09-16 03:56] VITALS: BP 95/65
[2017-09-16 07:16] VITALS: BP 104/63
[2017-09-16 07:16] LABS: BASOPHILS % (AUTO) 0.7 % (0.0-2.0); EOSINOPHILS % (AUTO) 3.4 % (1.0-6.0); HEMATOCRIT 33.9 % (41-53); LYMPHOCYTES # (AUTO) 1.4 K/uL (1.0-4.8); MEAN CORPUSCULAR HEMOGLOBIN 24.5 pg (26.0-34.0); MEAN CORPUSCULAR HGB CONC 32.6 G/dL (31.0-37.0); MEAN CORPUSCULAR VOLUME 75 fL (80-100); MONOCYTES # (AUTO) 0.6 K/uL (0.1-1.0); MONOCYTES % (AUTO) 8.9 % (2.0-9.0); NEUTROPHILS # (AUTO) 4.8 K/uL (1.8-7.7); PLATELET COUNT (AUTO) 181 K/uL (150-450); RED BLOOD CELL COUNT(AUTO) 4.51 MIL/uL (4.50-5.90); RED CELL DISTRIBUTION WIDTH 21.6 % (11.5-14.5)
[2017-09-16 07:42] LABS: ALBUMIN 2.3 g/dL (3.4-5.0); BILIRUBIN,TOTAL 0.4 mg/dL (0.1-1.0); CALCIUM, TOTAL 8.5 mg/dL (8.8-10.5); CREATININE 2.18 mg/dL (0.60-1.30); POTASSIUM 4.5 mmol/L (3.5-5.1); TOTAL PROTEIN, SERUM 6.2 g/dL (6.4-8.2)
[2017-09-16] MEDS: HEPARIN SODIUM,PORCINE 5,000 UNITS/ML VIAL SQ SCH ×4 (08:00→23:10)
[2017-09-16] MEDS: GABAPENTIN 300 MG CAPSULE PO SCH ×3 (08:46→20:18)
[2017-09-16] MEDS: CEPHALEXIN MONOHYDRATE 250 MG CAPSULE PO SCH ×4 (08:46→20:18)
[2017-09-16] MEDS: PANTOPRAZOLE SODIUM 40 MG DR TABLET PO SCH (08:46)
[2017-09-16] MEDS: ISOSORBIDE DINITRATE 20 MG TABLET PO SCH ×2 (08:46→20:18)
[2017-09-16] MEDS: ASPIRIN 81 MG EC TABLET PO SCH (08:46)
[2017-09-16] MEDS: DOCUSATE SODIUM 100 MG CAPSULE PO SCH ×2 (08:47→20:18)
[2017-09-16] MEDS: FUROSEMIDE 20 MG/2 ML VIAL IVP SCH (08:48)
[2017-09-16] MEDS: HydrALAZINE HCL 25 MG TABLET PO SCH ×2 (08:49→21:00)
[2017-09-16] MEDS: CARVEDILOL 12.5 MG TABLET PO SCH ×2 (09:00→21:00)
[2017-09-16 11:26] VITALS: BP 93/68
[2017-09-16 15:23] VITALS: BP 118/82
[2017-09-16 19:18] VITALS: BP 101/72
[2017-09-16] MEDS: ATORVASTATIN CALCIUM 20 MG TABLET PO SCH (20:18)
[2017-09-16 23:40] VITALS: BP 98/63
[2017-09-17 05:02] VITALS: BP 112/79
[2017-09-17 07:01] VITALS: BP 114/75
[2017-09-17 07:03] LABS: BASOPHILS % (AUTO) 0.7 % (0.0-2.0); EOSINOPHILS % (AUTO) 3.3 % (1.0-6.0); HEMATOCRIT 34.9 % (41-53); HEMOGLOBIN 11.3 g/dL (13.5-17.5); LYMPHOCYTES # (AUTO) 1.3 K/uL (1.0-4.8); LYMPHOCYTES % (AUTO) 19.2 % (22.0-44.0); MEAN CORPUSCULAR HEMOGLOBIN 24.4 pg (26.0-34.0); MEAN CORPUSCULAR HGB CONC 32.5 G/dL (31.0-37.0); MEAN CORPUSCULAR VOLUME 75 fL (80-100); MONOCYTES # (AUTO) 0.6 K/uL (0.1-1.0); MONOCYTES % (AUTO) 9.1 % (2.0-9.0); NEUTROPHILS # (AUTO) 4.6 K/uL (1.8-7.7); NEUTROPHILS % (AUTO) 67.7 % (40.0-70.0); PLATELET COUNT (AUTO) 179 K/uL (150-450); RED BLOOD CELL COUNT(AUTO) 4.64 MIL/uL (4.50-5.90); RED CELL DISTRIBUTION WIDTH 21.7 % (11.5-14.5)
[2017-09-17 07:22] LABS: ALBUMIN 2.3 g/dL (3.4-5.0); BILIRUBIN,TOTAL 0.5 mg/dL (0.1-1.0); CALCIUM, TOTAL 8.6 mg/dL (8.8-10.5); CREATININE 2.08 mg/dL (0.60-1.30); MAGNESIUM 2.3 mg/dL (1.80-2.40); POTASSIUM 4.5 mmol/L (3.5-5.1); TOTAL PROTEIN, SERUM 6.4 g/dL (6.4-8.2)
[2017-09-17] MEDS: HEPARIN SODIUM,PORCINE 5,000 UNITS/ML VIAL SQ SCH ×3 (08:00→23:21)
[2017-09-17] MEDS: HydrALAZINE HCL 25 MG TABLET PO SCH ×2 (08:51→20:29)
[2017-09-17] MEDS: DOCUSATE SODIUM 100 MG CAPSULE PO SCH ×2 (08:51→20:29)
[2017-09-17] MEDS: PANTOPRAZOLE SODIUM 40 MG DR TABLET PO SCH (08:51)
[2017-09-17] MEDS: GABAPENTIN 300 MG CAPSULE PO SCH ×3 (08:51→20:29)
[2017-09-17] MEDS: CEPHALEXIN MONOHYDRATE 250 MG CAPSULE PO SCH ×4 (08:51→20:29)
[2017-09-17] MEDS: ASPIRIN 81 MG EC TABLET PO SCH (08:51)
[2017-09-17] MEDS: FUROSEMIDE 20 MG/2 ML VIAL IVP SCH (08:52)
[2017-09-17 10:00] VITALS: BP 115/76
[2017-09-17] MEDS: ISOSORBIDE DINITRATE 20 MG TABLET PO SCH ×2 (10:01→20:29)
[2017-09-17] MEDS: CARVEDILOL 12.5 MG TABLET PO SCH ×2 (10:01→20:29)
[2017-09-17 11:37] VITALS: BP 98/67
[2017-09-17 15:12] VITALS: BP 102/73
[2017-09-17 19:28] VITALS: BP 146/74
[2017-09-17] MEDS: ATORVASTATIN CALCIUM 20 MG TABLET PO SCH (20:29)
[2017-09-18 05:22] VITALS: BP 115/82
[2017-09-18 07:36] VITALS: BP 112/74
[2017-09-18] MEDS: HEPARIN SODIUM,PORCINE 5,000 UNITS/ML VIAL SQ SCH ×2 (08:00→16:00)
[2017-09-18] MEDS: CARVEDILOL 12.5 MG TABLET PO SCH ×2 (08:23→20:27)
[2017-09-18] MEDS: DOCUSATE SODIUM 100 MG CAPSULE PO SCH ×2 (08:23→20:27)
[2017-09-18] MEDS: CEPHALEXIN MONOHYDRATE 250 MG CAPSULE PO SCH ×4 (08:23→20:27)
[2017-09-18] MEDS: GABAPENTIN 300 MG CAPSULE PO SCH ×3 (08:23→20:27)
[2017-09-18] MEDS: PANTOPRAZOLE SODIUM 40 MG DR TABLET PO SCH (08:23)
[2017-09-18 08:25] LABS: BASOPHILS % (AUTO) 0.8 % (0.0-2.0); EOSINOPHILS % (AUTO) 3.9 % (1.0-6.0); HEMATOCRIT 34.4 % (41-53); HEMOGLOBIN 11.1 g/dL (13.5-17.5); LYMPHOCYTES # (AUTO) 0.9 K/uL (1.0-4.8); LYMPHOCYTES % (AUTO) 15.2 % (22.0-44.0); MEAN CORPUSCULAR HEMOGLOBIN 24.3 pg (26.0-34.0); MEAN CORPUSCULAR HGB CONC 32.4 G/dL (31.0-37.0); MEAN CORPUSCULAR VOLUME 75 fL (80-100); MONOCYTES # (AUTO) 0.6 K/uL (0.1-1.0); MONOCYTES % (AUTO) 10.1 % (2.0-9.0); NEUTROPHILS # (AUTO) 4.2 K/uL (1.8-7.7); PLATELET COUNT (AUTO) 174 K/uL (150-450); RED BLOOD CELL COUNT(AUTO) 4.58 MIL/uL (4.50-5.90); RED CELL DISTRIBUTION WIDTH 21.9 % (11.5-14.5)
[2017-09-18] MEDS: FUROSEMIDE 20 MG/2 ML VIAL IVP SCH (08:25)
[2017-09-18] MEDS: ASPIRIN 81 MG EC TABLET PO SCH (08:25)
[2017-09-18 08:29] LABS: ALBUMIN 2.3 g/dL (3.4-5.0); BILIRUBIN,TOTAL 0.5 mg/dL (0.1-1.0); CALCIUM, TOTAL 8.5 mg/dL (8.8-10.5); CREATININE 2.07 mg/dL (0.60-1.30); MAGNESIUM 2.3 mg/dL (1.80-2.40); POTASSIUM 4.6 mmol/L (3.5-5.1); TOTAL PROTEIN, SERUM 6.3 g/dL (6.4-8.2)
[2017-09-18] MEDS: HydrALAZINE HCL 25 MG TABLET PO SCH (09:00)
[2017-09-18] MEDS: ISOSORBIDE DINITRATE 20 MG TABLET PO SCH (09:00)
[2017-09-18] MEDS: ISOSORB DINIT/HYDRALAZINE HCL 20-37.5 MG TABLET PO SCH ×4 (09:59→20:42)
[2017-09-18 10:01] VITALS: BP 117/80
[2017-09-18 11:44] VITALS: BP 111/73
[2017-09-18 16:24] VITALS: BP 120/80
[2017-09-18 19:43] VITALS: BP 107/72
[2017-09-18] MEDS: ATORVASTATIN CALCIUM 20 MG TABLET PO SCH (20:27)
[2017-09-19 00:11] VITALS: BP 112/69
[2017-09-19] MEDS: HEPARIN SODIUM,PORCINE 5,000 UNITS/ML VIAL SQ SCH ×3 (00:41→15:37)
[2017-09-19 04:54] VITALS: BP 109/73
[2017-09-19 06:57] LABS: BASOPHILS % (AUTO) 0.9 % (0.0-2.0); EOSINOPHILS % (AUTO) 4.3 % (1.0-6.0); HEMOGLOBIN 11.2 g/dL (13.5-17.5); LYMPHOCYTES # (AUTO) 1.2 K/uL (1.0-4.8); LYMPHOCYTES % (AUTO) 20.1 % (22.0-44.0); MEAN CORPUSCULAR HEMOGLOBIN 24.2 pg (26.0-34.0); MEAN CORPUSCULAR HGB CONC 32.1 G/dL (31.0-37.0); MEAN CORPUSCULAR VOLUME 76 fL (80-100); MONOCYTES # (AUTO) 0.8 K/uL (0.1-1.0); MONOCYTES % (AUTO) 12.4 % (2.0-9.0); NEUTROPHILS # (AUTO) 3.9 K/uL (1.8-7.7); NEUTROPHILS % (AUTO) 62.3 % (40.0-70.0); PLATELET COUNT (AUTO) 177 K/uL (150-450); RED BLOOD CELL COUNT(AUTO) 4.64 MIL/uL (4.50-5.90); RED CELL DISTRIBUTION WIDTH 21.1 % (11.5-14.5)
[2017-09-19 07:17] LABS: ALBUMIN 2.4 g/dL (3.4-5.0); BILIRUBIN,TOTAL 0.5 mg/dL (0.1-1.0); CALCIUM, TOTAL 8.8 mg/dL (8.8-10.5); CREATININE 2.17 mg/dL (0.60-1.30); MAGNESIUM 2.3 mg/dL (1.80-2.40); POTASSIUM 3.8 mmol/L (3.5-5.1); TOTAL PROTEIN, SERUM 6.3 g/dL (6.4-8.2)
[2017-09-19 07:35] VITALS: BP 105/68
[2017-09-19] MEDS: ISOSORB DINIT/HYDRALAZINE HCL 20-37.5 MG TABLET PO SCH ×3 (08:26→21:00)
[2017-09-19] MEDS: CEPHALEXIN MONOHYDRATE 250 MG CAPSULE PO SCH ×4 (08:27→21:00)
[2017-09-19] MEDS: GABAPENTIN 300 MG CAPSULE PO SCH ×3 (08:27→21:00)
[2017-09-19] MEDS: FUROSEMIDE 40 MG TABLET PO SCH (08:27)
[2017-09-19] MEDS: PANTOPRAZOLE SODIUM 40 MG DR TABLET PO SCH (08:28)
[2017-09-19] MEDS: CARVEDILOL 12.5 MG TABLET PO SCH ×2 (08:28→21:01)
[2017-09-19] MEDS: DOCUSATE SODIUM 100 MG CAPSULE PO SCH ×2 (08:28→21:00)
[2017-09-19] MEDS: ASPIRIN 81 MG EC TABLET PO SCH (08:29)
[2017-09-19 11:41] VITALS: BP 94/62
[2017-09-19 16:17] VITALS: BP 108/72
[2017-09-19] MEDS: ATORVASTATIN CALCIUM 20 MG TABLET PO SCH (21:00)
[2017-09-19 21:03] VITALS: BP 110/71
[2017-09-20] MEDS: HEPARIN SODIUM,PORCINE 5,000 UNITS/ML VIAL SQ SCH ×4 (00:26→23:51)
[2017-09-20 00:32] VITALS: BP 108/76
[2017-09-20 05:27] VITALS: BP 106/65
[2017-09-20 07:44] VITALS: BP 104/72
[2017-09-20] MEDS: ISOSORB DINIT/HYDRALAZINE HCL 20-37.5 MG TABLET PO SCH ×3 (08:15→21:00)
[2017-09-20] MEDS: CARVEDILOL 12.5 MG TABLET PO SCH ×2 (08:15→22:07)
[2017-09-20] MEDS: PANTOPRAZOLE SODIUM 40 MG DR TABLET PO SCH (08:15)
[2017-09-20] MEDS: GABAPENTIN 300 MG CAPSULE PO SCH ×3 (08:15→22:07)
[2017-09-20] MEDS: ASPIRIN 81 MG EC TABLET PO SCH (08:16)
[2017-09-20] MEDS: FUROSEMIDE 40 MG TABLET PO SCH (08:16)
[2017-09-20] MEDS: CEPHALEXIN MONOHYDRATE 250 MG CAPSULE PO SCH ×3 (08:16→15:40)
[2017-09-20] MEDS: DOCUSATE SODIUM 100 MG CAPSULE PO SCH ×2 (08:16→21:00)
[2017-09-20 11:28] VITALS: BP 128/60
[2017-09-20 20:15] VITALS: BP 107/60
[2017-09-20] MEDS: ATORVASTATIN CALCIUM 20 MG TABLET PO SCH (22:07)
[2017-09-21 00:09] VITALS: BP 99/67
[2017-09-21 04:11] VITALS: BP 104/64
[2017-09-21 07:46] VITALS: BP 108/71
[2017-09-21] MEDS: HEPARIN SODIUM,PORCINE 5,000 UNITS/ML VIAL SQ SCH ×2 (08:00→16:00)
[2017-09-21] MEDS: GABAPENTIN 300 MG CAPSULE PO SCH ×2 (08:08→16:00)
[2017-09-21] MEDS: CARVEDILOL 12.5 MG TABLET PO SCH (08:08)
[2017-09-21] MEDS: ASPIRIN 81 MG EC TABLET PO SCH (08:08)
[2017-09-21] MEDS: FUROSEMIDE 40 MG TABLET PO SCH (08:08)
[2017-09-21] MEDS: PANTOPRAZOLE SODIUM 40 MG DR TABLET PO SCH (08:08)
[2017-09-21] MEDS: DOCUSATE SODIUM 100 MG CAPSULE PO SCH (09:00)
[2017-09-21] MEDS: ISOSORB DINIT/HYDRALAZINE HCL 20-37.5 MG TABLET PO SCH ×2 (09:00→16:00)
[2017-09-21 11:36] VITALS: BP 110/62
[2017-09-21 14:11] LABS: GLUCOMETER DEV NAME(LOC) 5S 1M; GLUCOSE,POINT OF CARE 100 MG/DL (70-110)
[2017-09-21 14:11] LABS: GLUCOMETER DEV NAME(LOC) 5S 2Q; GLUCOSE,POINT OF CARE 107 MG/DL (70-110)
[2017-09-21 16:06] VITALS: BP 111/72
[2017-09-21] MEDS ORDERED: ISOS1TAB2 PO (16:12)
== END 2017-09-21 17:25 | disposition home or self-care (01) | DRG 291 ==
LOC: EMS 05:21 → 5S 08:17
PROVIDERS: ADMIT Internal Medicine; ATTEND Internal Medicine
DX: I13.0 Hypertensive heart and chronic kidney disease with heart failure and stage 1 through stage 4 chronic kidney disease, or unspecified chronic kidney disease (principal); I50.21 Acute systolic (congestive) heart failure; N18.4 Chronic kidney disease, stage 4 (severe); N17.9 Acute kidney failure, unspecified; I25.5 Ischemic cardiomyopathy; I25.10 Atherosclerotic heart disease of native coronary artery without angina pectoris; E78.5 Hyperlipidemia, unspecified; E11.22 Type 2 diabetes mellitus with diabetic chronic kidney disease; K21.9 Gastro-esophageal reflux disease without esophagitis; E78.00 Pure hypercholesterolemia, unspecified; J44.9 Chronic obstructive pulmonary disease, unspecified; F17.210 Nicotine dependence, cigarettes, uncomplicated; F15.90 Other stimulant use, unspecified, uncomplicated; Z79.82 Long term (current) use of aspirin; Z79.899 Other long term (current) drug therapy; Z95.810 Presence of automatic (implantable) cardiac defibrillator; Z95.1 Presence of aortocoronary bypass graft
CPT/HCPCS: 83735; 87081; 93005; 96374; 99285; J0360; J1644; J1940